=== PATIENT | female | born 1955 | race African-American/Black ===

== ENCOUNTER 2023-04-17 10:21 | Inpatient (IN) | payer OTHER ==
[~2023-04-17] VITALS: Ht 162.6 cm; Wt 112.8 kg
[2023-04-17 11:36] LABS: Basophils # (auto) 0.1 10 ^3/uL (0-0.2); Basophils % (auto) 1.3 % (0.0-2.0); Eosinophils # (auto) 0.1 10 ^3/uL (0-0.8); Eosinophils % (auto) 1.1 % (0.0-7.0); Hematocrit 52.1 % (36.0-46.0); Hemoglobin 16.6 g/dL (12.2-16.2); Lymphocytes # (auto) 2.1 10 ^3/uL (0.4-5.4); Lymphocytes % (auto) 20.9 % (10.0-50.0); Mean Corpuscular Hemoglobin 30.1 pg (28.0-32.0); Mean Corpuscular Hgb Conc. 31.8 g/dL (32.0-36.0); Mean Corpuscular Volume 94.4 fL (80.0-100.0); Monocytes # (auto) 1.2 10 ^3/uL (0-1.3); Monocytes % (auto) 11.8 % (0.0-12.0); Neutrophils # (auto) 6.6 10 ^3/uL (1.6-8.6); Neutrophils % (auto) 64.9 % (37.0-80.0); Nucleated Red Blood Cells % 0.2 %; Red Blood Cells 5.52 10^6/uL (4.0-5.20); Red Cell Distribution Width 17.4 % (11.8-14.3); White Blood Cell 10.1 10^3/uL (4.4-10.8)
[2023-04-17 11:47] LABS: Alanine Aminotransferase 61 U/L (7-40); Albumin 3.4 g/dL (3.2-4.8); Alkaline Phosphatase 110 U/L (46-116); Anion Gap 6 (5-15); Aspartate Aminotransferase 51 U/L (13-40); BUN/Creatinine Ratio 16.4 (10.0-20.0); Bilirubin, Total 0.9 mg/dL (0.2-1.0); Blood Urea Nitrogen 33 mg/dL (9-23); Calcium 9.1 mg/dL (8.5-10.1); Carbon Dioxide 27 mmol/L (20-30); Chloride 109 mmol/L (98-107); Glucose 150 mg/dL (74-106); Potassium 4.7 mmol/L (3.5-5.1); Sodium 142 mmol/L (136-145); Total Protein 6.1 g/dL (5.7-8.2)
[2023-04-17 11:54] LABS: INR 1.23 (0.9-1.15); Partial Thromboplastin Time 24.9 SEC (24.5-34.5); Prothrombin Time 12.7 sec (9.3-11.8)
[2023-04-17] MEDS ORDERED: FUROSEMIDE 40 MG/4 ML VIAL IV ONE (12:15)
[2023-04-17] MEDS ORDERED: ENOXAPARIN SOD 120 MG/0.8 ML SYRINGE SC ONE (15:45)
[2023-04-17] MEDS ORDERED: ONDANSETRON HCL 4 MG/2 ML VIAL IV PRN (18:00)
[2023-04-17] MEDS ORDERED: ACETAMINOPHEN 500 MG TAB PO PRN (18:00)
[2023-04-17] MEDS ORDERED: NITROGLYCERIN 0.4 MG SL TAB SL PRN (18:00)
[2023-04-17] MEDS ORDERED: MORPHINE SULFATE INJ 2 MG/ml SYRG IV PRN ×3 (18:00)
[2023-04-17 19:42] VITALS: PULSE 75; RESP 17; O2SAT 94
[2023-04-17] MEDS: BUMETANIDE 2.5mg/10ml (0.25 mg/ml) INJ IV SCH (20:48)
[2023-04-17] MEDS: METOPROLOL TARTRATE 1MG/1ML-5ML VIAL IV PRN (22:06)
[2023-04-17 23:04] VITALS: BP 177/102; PULSE 86; RESP 22; TEMP 98.4; O2SAT 100
[2023-04-18] VITALS (8 sets, daily range): BP systolic 138–196; BP diastolic 77–123; PULSE 63–86; RESP 15–22; TEMP 97.5–98.6; O2SAT 92–100
[2023-04-18] MEDS: METOPROLOL TARTRATE 1MG/1ML-5ML VIAL IV PRN (03:49)
[2023-04-18] MEDS: BUMETANIDE 2.5mg/10ml (0.25 mg/ml) INJ IV SCH ×2 (04:46→18:03)
[2023-04-18] MEDS ORDERED: hydrALAZINE HCL 20 MG/ML VL IV PRN (07:00)
[2023-04-18] MEDS ORDERED: METOPROLOL TARTRATE 1MG/1ML-5ML VIAL IV PRN (09:15)
[2023-04-18] MEDS: cloNIDine HCL 0.1 MG TAB PO SCH ×2 (09:29→22:00)
[2023-04-18] MEDS: ASPirin 81 mg TAB PO SCH (09:29)
[2023-04-18] MEDS: ENOXAPARIN SOD 40 MG/0.4 ML SYRINGE SC SCH (09:29)
[2023-04-18 13:17] LABS: Chloride 105 mmol/L (98-107); Potassium 4.3 mmol/L (3.5-5.1); Sodium 140 mmol/L (136-145)
[2023-04-18 13:18] LABS: Anion Gap 9 (5-15); Carbon Dioxide 26 mmol/L (20-30)
[2023-04-18 13:23] LABS: BUN/Creatinine Ratio 10.9 (10.0-20.0); Blood Urea Nitrogen 19 mg/dL (9-23); Glucose 131 mg/dL (74-106)
[2023-04-18 14:56] LABS: Triglycerides 118 mg/dL (< 150)
[2023-04-18 14:57] LABS: LDL Cholesterol 71 mg/dL (< 100)
[2023-04-18 14:58] LABS: Cholesterol 135 mg/dL (< 200); HDL Cholesterol 44 mg/dL (40-59)
[2023-04-18 15:00] LABS: Free T4 (Free Thyroxine) 0.94 ng/dL (0.89-1.76)
[2023-04-18] MEDS ORDERED: LEVO50TA7 PO ×2 (16:00→17:34)
[2023-04-18] MEDS ORDERED: ASPI-543 PO ×2 (16:00→17:34)
[2023-04-18] MEDS ORDERED: ALLO100T PO ×2 (16:01→17:34)
[2023-04-18] MEDS ORDERED: LOSA25TA15 PO ×2 (16:04→17:34)
[2023-04-18] MEDS ORDERED: TRIA75TA55 PO ×2 (16:04→17:34)
[2023-04-18] MEDS ORDERED: ATEN50TA PO ×2 (16:04→17:34)
[2023-04-18] MEDS ORDERED: POTA10TA51 PO ×2 (16:04→17:34)
[2023-04-18] MEDS ORDERED: LOVA20TA4 PO ×2 (16:06→17:34)
[2023-04-18] MEDS ORDERED: FAMO20TA10 PO (17:34)
[2023-04-18] MEDS ORDERED: ATORVASTATIN 20 MG TAB PO SCH (22:00)
[2023-04-18] MEDS: CARVEDILOL 3.125 MG TAB PO SCH (22:01)
[2023-04-19] VITALS (7 sets, daily range): BP systolic 132–151; BP diastolic 72–88; PULSE 64–84; RESP 18–20; TEMP 36.3; O2SAT 92–98
[2023-04-19] MEDS: BUMETANIDE 2.5mg/10ml (0.25 mg/ml) INJ IV SCH ×2 (06:03→18:00)
[2023-04-19 06:14] LABS: Anion Gap 4 (5-15); Carbon Dioxide 31 mmol/L (20-30); Chloride 104 mmol/L (98-107); Potassium 4.1 mmol/L (3.5-5.1); Sodium 139 mmol/L (136-145)
[2023-04-19 06:16] LABS: Calcium 8.7 mg/dL (8.7-10.4)
[2023-04-19 06:19] LABS: Basophils # (auto) 0.1 10 ^3/uL (0-0.2); Eosinophils # (auto) 0.2 10 ^3/uL (0-0.8); Eosinophils % (auto) 1.7 % (0.0-7.0); Hemoglobin 15.1 g/dL (12.2-16.2); Lymphocytes # (auto) 2.2 10 ^3/uL (0.4-5.4); Lymphocytes % (auto) 23.3 % (10.0-50.0); Mean Corpuscular Hgb Conc. 32.1 g/dL (32.0-36.0); Mean Corpuscular Volume 93.4 fL (80.0-100.0); Monocytes # (auto) 1.2 10 ^3/uL (0-1.3); Monocytes % (auto) 12.9 % (0.0-12.0); Neutrophils # (auto) 5.7 10 ^3/uL (1.6-8.6); Neutrophils % (auto) 61.1 % (37.0-80.0); Nucleated Red Blood Cells % 0.2 %; Red Blood Cells 5.03 10^6/uL (4.0-5.20); Red Cell Distribution Width 17.1 % (11.8-14.3); White Blood Cell 9.4 10^3/uL (4.4-10.8)
[2023-04-19 06:21] LABS: BUN/Creatinine Ratio 11.2 (10.0-20.0); Blood Urea Nitrogen 20 mg/dL (9-23); Glucose 109 mg/dL (74-106)
[2023-04-19] MEDS ORDERED: EMPAGLIFLOZIN 10 MG TAB PO SCH (07:00)
[2023-04-19] MEDS: ASPirin 81 mg TAB PO SCH (09:34)
[2023-04-19] MEDS: cloNIDine HCL 0.1 MG TAB PO SCH (09:34)
[2023-04-19] MEDS: CARVEDILOL 3.125 MG TAB PO SCH (09:34)
[2023-04-19] MEDS: ENOXAPARIN SOD 40 MG/0.4 ML SYRINGE SC SCH (09:35)
[2023-04-19] MEDS ORDERED: ATEN50TA PO (15:44)
[2023-04-19] MEDS ORDERED: CLON0.1T PO (15:44)
[2023-04-19] MEDS ORDERED: EMPA1TAB PO (15:44)
[2023-04-19] MEDS ORDERED: TRIA75TA55 PO ×3 (15:44→15:49)
[2023-04-19] MEDS ORDERED: LOSA25TA15 PO (15:44)
== END 2023-04-19 19:50 | disposition home or self-care (01) | DRG 291 ==
LOC: ER 10:21 → TELE 17:54 → TELE-CENTR 21:03
PROVIDERS: ADMIT Hospitalist; ATTEND Hospitalist
DX: I13.0 Hypertensive heart and chronic kidney disease with heart failure and stage 1 through stage 4 chronic kidney disease, or unspecified chronic kidney disease (principal); I50.43 Acute on chronic combined systolic (congestive) and diastolic (congestive) heart failure; Z68.41 Body mass index [BMI] 40.0-44.9, adult; I34.0 Nonrheumatic mitral (valve) insufficiency; E66.01 Morbid (severe) obesity due to excess calories; E03.9 Hypothyroidism, unspecified; N18.30 Chronic kidney disease, stage 3 unspecified
CPT/HCPCS: 36415; 71045; 80048; 80053; 80061; 82607; 83036; 83735; 83880; 84439; 84443; 84484; 85025; 85610; 85730; 93005; 93306; 93970; 97110; 97116; 97163; G0378

== ENCOUNTER 2023-04-23 17:33 | Inpatient (IN) | payer OTHER, MEDICAID ==
[~2023-04-23] VITALS: Ht 162.6 cm; Wt 108.0 kg
[~2023-04-23 17:33] MED LIST: ALLO100T PO; ASPI-543 PO; ATEN50TA PO; CLON0.1T PO; EMPA1TAB PO; FAMO20TA10 PO; LEVO50TA7 PO; LOSA25TA15 PO; LOVA20TA4 PO; TRIA75TA55 PO
[2023-04-23 20:36] LABS: Urine Bacteria NONE SEEN /hpf (None Seen); Urine Blood 3+ /uL (Negative); Urine Clarity HAZY (Clear); Urine Color Yellow (Yellow); Urine Protein, UAD 2+ (Negative); Urine Specific Gravity 1.011 (1.001-1.035); Urine Urobilinogen Normal (Negative); Urine WBC 13 /hpf (0 - 5); Urine pH 7.5 (5.0-8.0)
[2023-04-23 20:41] LABS: Basophils # (auto) 0.1 10 ^3/uL (0-0.2); Basophils % (auto) 1.1 % (0.0-2.0); Eosinophils # (auto) 0.2 10 ^3/uL (0-0.8); Eosinophils % (auto) 1.7 % (0.0-7.0); Lymphocytes # (auto) 1.6 10 ^3/uL (0.4-5.4); Lymphocytes % (auto) 17.8 % (10.0-50.0); Mean Corpuscular Volume 93.6 fL (80.0-100.0); Monocytes # (auto) 1.3 10 ^3/uL (0-1.3); Monocytes % (auto) 14.4 % (0.0-12.0); Neutrophils # (auto) 5.8 10 ^3/uL (1.6-8.6); Nucleated Red Blood Cells % 0.1 %; Red Blood Cells 5.34 10^6/uL (4.0-5.20); Red Cell Distribution Width 16.5 % (11.8-14.3); White Blood Cell 8.9 10^3/uL (4.4-10.8)
[2023-04-23 21:03] LABS: Alanine Aminotransferase 49 U/L (7-40); Albumin 3.6 g/dL (3.2-4.8); Alkaline Phosphatase 99 U/L (46-116); Anion Gap 6 (5-15); Aspartate Aminotransferase 49 U/L (13-40); BUN/Creatinine Ratio 9.2 (10.0-20.0); Bilirubin, Total 0.5 mg/dL (0.2-1.0); Blood Urea Nitrogen 16 mg/dL (9-23); Calcium 8.9 mg/dL (8.5-10.1); Carbon Dioxide 27 mmol/L (20-30); Chloride 105 mmol/L (98-107); Glucose 127 mg/dL (74-106); Potassium 4.2 mmol/L (3.5-5.1); Sodium 138 mmol/L (136-145); Total Protein 6.7 g/dL (5.7-8.2)
[2023-04-23] MEDS ORDERED: cefTRIAXone SOD 1,000 MG VL IM ONE (22:15)
[2023-04-24] MEDS ORDERED: HYDROcodone-ACET 5/325MG TAB PO PRN
[2023-04-24] MEDS ORDERED: ACETAMINOPHEN 325 MG TAB PO PRN
[2023-04-24] MEDS ORDERED: DEXTROSE (50%) 50ML SYRG IV PRN
[2023-04-24] MEDS ORDERED: cefTRIAXone 1GM/50ML D5W 50 ML IV ONE (00:45)
[2023-04-24] MEDS: ATENOLOL 50 MG TAB PO SCH ×2 (00:59→10:03)
[2023-04-24 01:00] VITALS: PULSE 84; RESP 14; O2SAT 95
[2023-04-24 04:49] LABS: Chloride 105 mmol/L (98-107); Potassium 3.9 mmol/L (3.5-5.1); Sodium 138 mmol/L (136-145)
[2023-04-24 04:50] LABS: Anion Gap 7 (5-15); Carbon Dioxide 26 mmol/L (20-30)
[2023-04-24 04:51] LABS: Calcium 8.7 mg/dL (8.5-10.1)
[2023-04-24 04:55] LABS: BUN/Creatinine Ratio 9.8 (10.0-20.0); Blood Urea Nitrogen 18 mg/dL (9-23); Glucose 150 mg/dL (74-106)
[2023-04-24] MEDS: hydrALAZINE HCL 10 MG TAB PO PRN (06:18)
[2023-04-24] MEDS: ACCU-CHEK COMFORT CURVE STRIP VI SCH ×4 (06:38→22:00)
[2023-04-24] MEDS: LEVOTHYROXINE SODIUM 50 MCG TAB PO SCH (07:00)
[2023-04-24] MEDS: InsuLIN REG 1unit/0.01ml Soln (100units/ml) SC SCH ×4 (07:31→22:00)
[2023-04-24 08:37] VITALS: PULSE 73; RESP 16; O2SAT 94
[2023-04-24] MEDS ORDERED: TRIAMTERENE/HCTZ 75/50MG TABLET PO SCH (10:00)
[2023-04-24] MEDS ORDERED: PATIENTS OWN MEDICATION (Lovastatin 1 TAB) PO SCH (10:00)
[2023-04-24] MEDS ORDERED: ATENOLOL 50 MG TAB PO SCH (10:00)
[2023-04-24] MEDS: cefTRIAXone 1GM/50ML D5W 50 ML IV SCH (10:02)
[2023-04-24] MEDS: FAMOTIDINE 20 MG TAB PO SCH (10:03)
[2023-04-24] MEDS: cloNIDine HCL 0.1 MG TAB PO SCH ×2 (10:03→22:08)
[2023-04-24 19:25] VITALS: PULSE 84; RESP 19; O2SAT 97
[2023-04-24] MEDS ORDERED: LOVASTATIN 10 MG PO SCH (22:00)
[2023-04-24] MEDS: PRAVASTATIN SODIUM 20 MG TAB PO SCH ×2 (22:00→22:07)
[2023-04-25] VITALS (7 sets, daily range): BP systolic 131–161; BP diastolic 84–95; PULSE 71–77; RESP 16–20; TEMP 97.4–98.8; O2SAT 94–100
[2023-04-25] MEDS: hydrALAZINE HCL 10 MG TAB PO PRN (00:55)
[2023-04-25 06:18] LABS: Anion Gap 7 (5-15); Carbon Dioxide 26 mmol/L (20-30); Chloride 105 mmol/L (98-107); Sodium 138 mmol/L (136-145)
[2023-04-25 06:19] LABS: Calcium 8.7 mg/dL (8.5-10.1)
[2023-04-25 06:24] LABS: BUN/Creatinine Ratio 12.6 (10.0-20.0); Blood Urea Nitrogen 21 mg/dL (9-23); Glucose 127 mg/dL (74-106); Triglycerides 119 mg/dL (< 150)
[2023-04-25 06:25] LABS: LDL Cholesterol 67 mg/dL (< 100)
[2023-04-25 06:26] LABS: Cholesterol 132 mg/dL (< 200); HDL Cholesterol 46 mg/dL (40-59)
[2023-04-25] MEDS: ACCU-CHEK COMFORT CURVE STRIP VI SCH ×4 (06:58→21:54)
[2023-04-25] MEDS: InsuLIN REG 1unit/0.01ml Soln (100units/ml) SC SCH ×4 (07:00→21:54)
[2023-04-25] MEDS: LEVOTHYROXINE SODIUM 50 MCG TAB PO SCH (07:00)
[2023-04-25] MEDS: FAMOTIDINE 20 MG TAB PO SCH (10:15)
[2023-04-25] MEDS: cloNIDine HCL 0.1 MG TAB PO SCH ×2 (10:16→21:53)
[2023-04-25] MEDS: ATENOLOL 50 MG TAB PO SCH (10:17)
[2023-04-25] MEDS: TRIAMTERENE/HCTZ 37.5/25 MG CAP/TAB PO SCH (10:19)
[2023-04-25] MEDS: cefTRIAXone 1GM/50ML D5W 50 ML IV SCH (10:29)
[2023-04-25 19:46] LABS: Creatinine, Urine 58.83 mg/dL (30.0-125.0); Urine Protein/Creatinine Ratio 1.95
[2023-04-25] MEDS: PRAVASTATIN SODIUM 20 MG TAB PO SCH (21:53)
[2023-04-26 05:00] VITALS: BP 141/103; PULSE 73; RESP 18; TEMP 98; O2SAT 99
[2023-04-26] MEDS ORDERED: cloNIDine HCL 0.1 MG TAB PO ONE (05:15)
[2023-04-26] MEDS: InsuLIN REG 1unit/0.01ml Soln (100units/ml) SC SCH ×2 (06:19→11:30)
[2023-04-26] MEDS: ACCU-CHEK COMFORT CURVE STRIP VI SCH ×2 (06:27→12:19)
[2023-04-26] MEDS: LEVOTHYROXINE SODIUM 50 MCG TAB PO SCH (06:27)
[2023-04-26 06:33] VITALS: BP 170/103; PULSE 82
[2023-04-26] MEDS: hydrALAZINE HCL 10 MG TAB PO PRN (06:47)
[2023-04-26 07:06] LABS: Complement C3 159 mg/dL (82-167)
[2023-04-26 08:00] VITALS: BP 129/84; PULSE 65; PULSE 67; RESP 18; TEMP 97.9; O2SAT 98
[2023-04-26 09:00] VITALS: BP 129/84; PULSE 67; RESP 18; TEMP 97.9; O2SAT 98
[2023-04-26] MEDS: cloNIDine HCL 0.1 MG TAB PO SCH (10:00)
[2023-04-26] MEDS: cefTRIAXone 1GM/50ML D5W 50 ML IV SCH (10:08)
[2023-04-26] MEDS: FAMOTIDINE 20 MG TAB PO SCH (10:11)
[2023-04-26] MEDS: ATENOLOL 50 MG TAB PO SCH (10:14)
[2023-04-26] MEDS: TRIAMTERENE/HCTZ 37.5/25 MG CAP/TAB PO SCH (10:16)
[2023-04-26 12:07] LABS: Anti-Nuclear Antibody Direct Negative (Negative)
[2023-04-26 13:00] VITALS: BP 136/95; PULSE 67; RESP 18; TEMP 97.9; O2SAT 99
[2023-04-26] MEDS ORDERED: CEPH500C PO (14:40)
[2023-04-26 15:21] VITALS: BP 136/95; PULSE 67; RESP 18; TEMP 97.9; O2SAT 99
[2023-04-27 13:07] LABS: Cytoplasmic (C-ANCA) <1:20 titer (Neg:<1:20); Perinuclear (P-ANCA) <1:20 titer (Neg:<1:20)
[2023-04-27 18:06] LABS: Antithrombin III Antigen 105 % (72-124)
[2023-04-28 19:06] LABS: Antiglomerular BM Antibody <0.2 units (0.0-0.9)
== END 2023-04-26 17:30 | disposition home or self-care (01) | DRG 683 ==
LOC: ER 17:33 → TELE 23:52 → OBSVTOIN 04-24 13:53 → TELE 04-25 09:10 → TELE-CENTR 04-25 09:18
PROVIDERS: ADMIT Internal Medicine; ATTEND Nurse Practitioner Family
DX: N17.9 Acute kidney failure, unspecified (principal); I13.0 Hypertensive heart and chronic kidney disease with heart failure and stage 1 through stage 4 chronic kidney disease, or unspecified chronic kidney disease; N39.0 Urinary tract infection, site not specified; Z68.41 Body mass index [BMI] 40.0-44.9, adult; N28.1 Cyst of kidney, acquired; I50.9 Heart failure, unspecified; N18.32 Chronic kidney disease, stage 3b; E66.01 Morbid (severe) obesity due to excess calories; M10.9 Gout, unspecified; E11.22 Type 2 diabetes mellitus with diabetic chronic kidney disease; K21.9 Gastro-esophageal reflux disease without esophagitis; R31.0 Gross hematuria; E03.9 Hypothyroidism, unspecified; Z87.891 Personal history of nicotine dependence
CPT/HCPCS: 36415; 74176; 76775; 80048; 80053; 80061; 81001; 82570; 82962; 84156; 85025; 85301; 86038; 86160; 86256; 87040; 87081; 87086; G0378; J0696; J1815